=== PATIENT | female | born 1990 | race Caucasian/White ===

== ENCOUNTER 2018-06-14 01:35 | Emergency (ER) | payer MEDICAID ==
[~2018-06-14] VITALS: Ht 170.2 cm; Wt 60.0 kg
[2018-06-14] MEDS ORDERED: KETOROLAC 30 MG/1 ML IV ONE (02:00)
[2018-06-14] MEDS ORDERED: HYDROcodone/APAP 5/325 TABLET PO PRN (02:00)
[2018-06-14] MEDS ORDERED: DIAZEPAM 5 MG TABLET PO ONE (02:00)
[2018-06-14] MEDS ORDERED: HYDROcodone/APAP 5/325 TABLET ONE (02:09)
[2018-06-14] MEDS ORDERED: DIAZEPAM 5 MG TABLET ONE (02:09)
[2018-06-14] MEDS ORDERED: KETOROLAC 30 MG/1 ML ONE (02:09)
[2018-06-14 03:06] VITALS: BP 107/67
--- NOTE | 2018-06-14 03:28 | NUR ---
Patient/Caregiver given discharge instructions and they have confirmed that they understand the instructions. Patient ambulatory with steady gait.
== END 2018-06-15 11:55 | disposition home or self-care (01) ==
LOC: ED 03:16
DX: S39.012A Strain of muscle, fascia and tendon of lower back, initial encounter (principal); F17.200 Nicotine dependence, unspecified, uncomplicated; X58.XXXA Exposure to other specified factors, initial encounter; Y93.89 Activity, other specified; Y92.89 Other specified places as the place of occurrence of the external cause; Y99.8 Other external cause status
CPT/HCPCS: 72110; 72220; 96374; 99283; J1885